=== PATIENT | male | born 1995 | race Caucasian/White ===

== ENCOUNTER 2022-07-26 13:01 | Emergency (ER) | payer SELFPAY ==
[~2022-07-26] VITALS: Ht 177.8 cm; Wt 91.0 kg
[2022-07-26 13:21] VITALS: BP 166/90
[2022-07-26] MEDS ORDERED: SODIUM CHLORIDE 0.9% 1,000 ML IV ONE (17:45)
== END 2022-07-26 18:37 | disposition left against medical advice (07) ==
LOC: ER 13:01
DX: Z53.21 Procedure and treatment not carried out due to patient leaving prior to being seen by health care provider (principal); I49.9 Cardiac arrhythmia, unspecified
CPT/HCPCS: 93005; J7030